=== PATIENT | female | born 1975 | race Caucasian/White ===

== ENCOUNTER 2024-12-06 21:30 | Emergency (ER) | payer MEDICAID, SELFPAY ==
[2024-12-06 21:34] VITALS: BP 136/71; PULSE 88; RESP 18; TEMP 36.3; O2SAT 96; BMI 31.0
[2024-12-06 22:13] LABS: Basophils Percent Auto 0.1 % (0-2); Eosinophils Absolute Auto 0.2 X10*3/uL (0.0-0.4); Eosinophils Percent Auto 1.6 % (0-4); Hematocrit 40.6 % (37.0-47.0); Hemoglobin 13.5 g/dl (12.0-16.0); Imm Gran Abs Auto 0.03 X10*3/uL (0.00-0.03); Imm Gran Pct Auto 0.2 % (0.0-0.4); Lymphocytes Percent Auto 50.2 % (20-40); MANUAL DIFF FLAG SCAN; Mean Corpuscular HGB Conc 33.3 g/dl (31.0-35.0); Mean Corpuscular Hemoglobin 27.8 pg (27.0-33.0); Mean Corpuscular Volume 83.5 fL (80.0-98.0); Mean Platelet Volume 9.6 fL (9.4-12.3); Monocytes Absolute Auto 0.8 X10*3/uL (0.1-1.2); Monocytes Percent Auto 6.2 % (2-11); Neutrophils Absolute Auto 5.6 x10*3/uL (2.0-8.3); Neutrophils Percent Auto 41.7 % (45-73); Platelet Count 369 X10*3/uL (160-400); Red Blood Count 4.86 X10*6/uL (4.20-5.50); Red Cell Distribution Width 16.7 % (11.0-16.0); SCAN SMEAR FLAG 1; White Blood Count 13.4 X10*3/uL (4.8-10.8)
[2024-12-06 22:14] LABS: Lymphocytes Absolute Auto 6.7 X10*3/uL (1.2-4.9)
[2024-12-06 22:15] LABS: Appearance Urine Clear; Color Urine Yellow; Glucose Urine UA Negative (Negative); Leukocyte Esterase Urine Negative (Negative); Nitrite Urine Negative (Negative); Specific Gravity - Urine <= 1.005 (1.005-1.025); Urine Blood Negative (Negative); Urine Ketones Negative (Negative); Urine Protein Negative (Neg-Trace)
[2024-12-06 22:21] LABS: Bacteria Urine None Seen (None Seen); Hyaline Casts Urine 0-2 /LPF (0-2); RBC Urine 0-2 /HPF (0-2); Squamous Epithelial Cell Urine 0-2 /HPF (0-2); WBC Urine 0-5 /HPF (0-5)
[2024-12-06 22:22] LABS: UPreg QC Valid YES; Urine Pregnancy NEGATIVE (NEGATIVE)
[2024-12-06 22:30] LABS: Alanine Aminotransferase 15 U/L (0-31); Albumin Level 4.2 g/dL (3.5-5.0); Alkaline Phosphatase 84 U/L (39-117); Anion Gap 16 (12-20); Aspartate Amino Transferase 29 U/L (5-31); Bilirubin Direct < 0.2 mg/dL (0.0-0.5); Bilirubin Total 0.2 mg/dL (0.0-1.0); Blood Urea Nitrogen 10 mg/dL (9-16); Calcium 9.7 mg/dL (8.4-10.2); Carbon Dioxide 19 mmol/L (22-29); Chloride 105 mmol/L (96-108); Creatinine Clr Calc Pharmacy 90.6; Estimated Glomerular Filt Rate > 60; Glucose Random 74 mg/dL (60-115); Lipase 20 U/L (8-78); Potassium 3.4 mmol/L (3.3-5.1); Sodium 137 mmol/L (135-145)
[2024-12-06 22:44] LABS: SLIDE REVIEW VERIFIED
[2024-12-06 22:52] LABS: Influenza A PCR NEGATIVE (Negative); Influenza B PCR NEGATIVE (Negative); Resp Syncy Virus RNA Qual PCR NEGATIVE (Negative); SARS COV2 PCR INHOUSE NEGATIVE (Negative)
== END 2024-12-07 03:51 | disposition left against medical advice (07) ==
PROVIDERS: Emergency Provider Emergency Medicine; PCP Internal Medicine
DX: R10.9 Unspecified abdominal pain (principal); R11.2 Nausea with vomiting, unspecified; Z03.818 Encounter for observation for suspected exposure to other biological agents ruled out; Z53.21 Procedure and treatment not carried out due to patient leaving prior to being seen by health care provider
CPT/HCPCS: 0241U; 36415; 80048; 80076; 81001; 81025; 83690; 85025; 99281; 99282

== ENCOUNTER 2025-06-28 11:52 | Outpatient (REF) | payer MEDICAID, SELFPAY ==
--- OUTSIDE RECORDS SUMMARY | 2025-06-28 10:45 | XMS_ITS | Encounter Summary ---
Author Organization [facility] Address [address] [place] [address] Care Team Providers Care Poured Concrete Wall Technician Name Role Phone Eleanor Torres MD Primary Care Provider Reason for Referral * Imaging (Routine) - Closed Specialty Diagnoses / Procedures Referred By James william Referred To Contact Radiology Diagnoses Breast cancer screening by mammogram Procedures BI Mammogram Screening Tomosynthesis Bilateral Eleanor Torres MD [address] [place] [address] Phone: tel: fax: [facility] Referral ID Status Reason Start Date Expiration Date Visits Re quested Visits Authorized [id number] Closed 06/28/2025 06/28/2026 1 1 * Consultation (Routine) - Pending Review Specialty Diagnoses / Procedures Referred By James william Referred To Contact Optometry Diagnoses Blurry vision Eleanor Torres MD [address] [place] [address] Phone: tel: fax: Referral ID Status Reason Start Date Expiration Date Visits Requested Visits Authorized [id number] Pending Review Specialty Services Required 06/28/2025 06/28/2026 1 1 Reason for Visit * Reason Comments Establish Care Encounter Details Date Type Department Care Team (Late st Contact Info) Description 06/28/2025 10:45 AM EDT Office Visit [facility] MED & PEDS [address] [place], [place] [phone] Eleanor Torres MD [address] [place] [address] Blurry vision (Primary Dx); Breast cancer screening by mammogram; H. pylori infection; Encounter for health-related screening; Overweight; Abnormal uterine bleeding; Acute right-sided thoracic back pain Social History Tobacco Use Types Packs/Day Years Used Date Smoking Tobacco: Every Day Cigarettes Tobacco Cessation:Ready to Q uit: Not Asked Alcohol Use Standard Drinks/Week Comments Not Currently 0 (1 standard drink = 0.6 oz pur e alcohol) Housing Stability Answer Date Recorded What is your housing situation today? I have shruthi jaquez 06/21/[address] you li ve. Do you have problems with any of the following? None of the above 06/21/2025 Food Insecurity Answer Date Recorded Within the past 12 months, y ou worried that your food would run out before you got money to buy more: Never True 06/21/2025 Within the past 12 months,th e food you bought just didn't last and you didn't have enough money to get more: Never True 08/2025 Transportation Answer Date Recorded In the past 12 months, has l ack of transportation kept you from medical appts, meetings, work or from getting things needed for daily living? Yes, it has kept me from medical appointments or getting medications. 06/21/2025 Utilities Answer Date Recorded In the past 12 months, has t he electric, gas, oil or water company threatened to shut off services in your home? No 06/21/2025 Internet Access Answer Date Recorded Internet Access Q1 Yes 06/21/2025 Internet Access Q2 Not on file 06/21/2025 Comments No Sex and Gender Information Value Date Recorded Sex Assigned at Female 08/10/2022 10:17 AM EDT Legal Sex Female 10:17 AM EDT Gender Identity Female 08/10/2022 10:17 AM EDT Sexual Orientation Straight 08/10/2022 10 :17 AM EDT documented as of this encounter Last Filed Vital Signs Vital Sign Reading Time Taken Comments Blood Pressure 108/70 06/28/2025 10:56 AM EDT Pulse 78 06/28/2025 10:56 AM EDT Temperature 36.7 C (98.1 F) 06/28/2025 10:56 AM EDT Respiratory Rate 20 06/28/2025 10:56 AM EDT Oxygen Saturation 98% 06/28/2025 10:56 AM EDT Inhaled Oxygen Concentration - - Weight 69.1 kg (152 lb 6.4 oz) 06/28/2025 10:56 AM EDT Height 158 cm (5' 2.21 ) 06/28/2025 10:56 AM EDT Body Mass Index 27.69 06/28/2025 10:56 AM EDT documented in this encounter Plan of Treatment Upcoming Encounters Date Type Department Care Team (Late st Contact Info) Description 07/24/2025 11:00 AM EDT Procedure Visit [facility] MED & PEDS [address] [place] [address] Eleanor Torres MD [address] [place] [address] 09/10/2025 11:30 AM EST Office Visit [facility] MED & PEDS [address] [place] [address] Eleanor Torres MD [address] [place] [address] Scheduled Orders Name Type Priority Associated Diagnoses Orde r Schedule BI Mammogram Screening Tomosynthesis Bilateral Imaging Routine Breast cancer screening by mammogram Expected: 06/28/2025, Expires: 08/28/2026 Helicobacter pylori Antigen, EIA, Stool Lab Routine H. pylori infection Expected: 06/28/2025, Expires: 06/28/2026 CBC auto differential Lab Routine Encounter for health-related screening Overweight Expected: 06/28/2025 (Approximate), Expires: 06/28/2026 Comprehensive Metabolic Panel Lab Routine Encounter for health-related screening Overweight Expected: 06/28/2025 (Approximate), Expires: 06/28/2026 Lipid Panel, Standard Lab Routine Encounter for health-related screening Overweight Expected: 06/28/2025 (Approximate), Expires: 06/28/2026 TSH W/Reflex to FT4 Lab Routine Encounter for health-related screening Overweight Expected: 06/28/2025 (Approximate), Expires: 06/28/2026 Albumin, Random Urine W/Creatinine Lab Routine Encounter for health-related screening Expected: 06/28/2025 (Approximate), Expires: 06/28/2026 HIV-1/2 Antigen and Antibodies, Fourth Generation, with Reflexes Lab Routine Encounter for health-related screening Expected: 06/28/2025 (Approximate), Expires: 06/28/2026 Hepatitis C Antibody with Reflex to HCV, RNA, Quantitative, Real-Time PCR Lab Routine Encounter for health-related screening Expected: 06/28/2025, Expires: 06/28/2026 Hepatitis B Surface Antibody, Qualitative Lab Routine Encounter for health-related screening Expected: 06/28/2025 (Approximate), Expires: 06/28/2026 Hepatitis B Core Antibody, Total Lab Routine Encounter for health-related screening Expected: 06/28/2025 (Approximate), Expires: 06/28/2026 Hepatitis B surface antigen, EIA Lab Routine Encounter for health-related screening Expected: 06/28/2025 (Approximate), Expires: 06/28/2026 FSH Lab Routine Abnormal uterine bleeding Expected: 06/28/2025, Expires: 06/28/2026 Estradiol Lab Routine Abnormal uterine bleeding Expected: 06/28/2025, Expires: 06/28/2026 Anti-Mullerian Hormone (AMH), Female Lab Routine Abnormal uterine bleeding Expected: 06/28/2025 (Approximate), Expires: 06/28/2026 XR Thoracic Spine 2 Views Imaging Routine Acute right-sided thoracic back pain Expected: 06/28/2025, Expires: 06/28/2026 Scheduled Referrals Name Type Priority Associated Diagnoses Orde r Schedule Referral to Optometry Outpatient Referral Routine Blurry vision Expected: 06/28/2025 (Approximate), Expires: 06/28/2026 documented as of this encounter Visit Diagnoses Diagnosis Blurry vision- Primary Other specified visual disturbances Breast cancer screening by mammogram H. pylori infection Helicobacter pylori (H. pylori) Encounter for health-related screening Overweight Abnormal uterine bleeding Unspecified disorder of menstruation and other abnormal bleeding from female genital tract Acute right-sided thoracic back pain documented in this encounter Care Teams Poured Concrete Wall Technician Relationship Specialty Start Date End Date Eleanor Torres MD [address] [place] [id number] PCP - General Family Medicine 06/28/25 DON Hernandez Nurse Practitioner Psychiatry 06/28/25 documented as of this encounter
--- OUTSIDE RECORDS SUMMARY | 2025-06-28 14:12 | XMS_ITS | Encounter Summary ---
Author Organization [employer] Address [address] [place] [address] Care Team Providers Care Art Consultant Name Role Phone Eleanor Torres MD Primary Care Provider [phone] Reason for Visit * Reason Onset Date Comments Appointment Request 03/22/2024 Encounter Details Date Type Department Care Team ([facility] st Contact Info) Description 03/22/2024 Telephone [facility] MEDICINE [address] [place] [address] Billie Cutler MD [address] [place], [place] [phone] Appointment Request Social History Tobacco Use Types Packs/Day Years Used Date Smoking Tobacco: Never Assessed Comments Unknown Sex and Gender Information Value Date Recorded Sex Assigned at Female 08/10/2022 10:17 AM EDT Legal Sex Female 10:17 AM EDT Gender Identity Female 08/10/2022 10:17 AM EDT Sexual Orientation Straight 08/10/2022 10 :17 AM EDT documented as of this encounter Miscellaneous Notes * Telephone Encounter - Erika Mcintosh - 03/22/2024 3:19 PM EDT Tc regarding message prior. Windows Server Support Technician informed is no longer a pt. Hasn't been seen since 01/2021 * Telephone Encounter - Jennifer Alex - 03/22/2024 9:12 AM EDT Tc from pt requesting PE appt, needed for work for this week, pt advised no availability until May. documented in this encounter Plan of Treatment Upcoming Encounters Date Type Department Care Team (Late st Contact Info) Description 07/24/2025 11:00 AM EDT Procedure Visit [facility] MED & PEDS [address] [place] [address] Eleanor Torres MD [address] [place] [address] 09/10/2025 11:30 AM EST Office Visit [facility] MED & PEDS [address] [place] [address] Eleanor Torres MD [address] [place] [address] documented as of this encounter Visit Diagnoses Not on filedocumented in this encounter Care Teams Art Consultant Relationship Specialty Start Date End Date Eleanor Torres MD [address] [place] [address] PCP - General Family Medicine 06/28/25 DON Hernandez Nurse Practitioner Psychiatry 06/28/25 documented as of this encounter
--- OUTSIDE RECORDS SUMMARY | 2025-06-28 14:12 | XMS_ITS | Clinical Summary ---
Author Organization [employer] Address [address] [place] [address] Care Team Providers Care Plate Stacker Name Role Phone Eleanor Torres MD Primary Care Provider [phone] Allergies No known active allergies Medications * This document contains information received from the source organization and may not represent a complete record from that organization. QUEtiapine (SEROquel) 50 MG tabletIndicatio ns:Insomnia Take 75 mg by mouth at bedtime. 5 Active lamoTRIgine (LaMICtal) 25 MG tablet Take 100 mg by mouth Once per day. 5 Active clonazePAM (KlonoPIN) 1 MG tablet TAKE ONE TABLET DAILY NEEDED FOR SEVERE anxiety/panic attacks Active acetaminophen (Tylenol Extra Strength) 500 MG tablet Take 2 tablets (1,000 mg) by mouth every 8 (eight) hours if needed for mild pain. 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 pylori infection; Encounter for health-related screening; Overweight; Abnormal uterine bleeding; Acute right-sided thoracic back pain 06/28/2025 Travel 06/25/2025 Telephone [facility] MED & PEDS [address] [place] [address] Eleanor Torres MD chart prep 06/22/2025 Patient Outreach [address] [address] Fabiola Zamarripa Care Coordination (C3 CM-[facility]W Fabiola Zamarripa telephone call outreach/) 06/21/2025 Patient Outreach [address] [address] Guy Medina MD Pre-visit Planning (SDOH screening positive and Tobacco screening positive) 04/23/[address] [address] Guy Medina MD New Patient from Last 3 Months Social History Tobacco Use Types Packs/Day Years Used Date Smoking Tobacco: Every Day Cigarettes Tobacco Cessation:Ready to Q uit: Not Asked Alcohol Use Standard Drinks/Week Comments Not Currently 0 (1 standard drink = 0.6 oz pur e alcohol) Housing Stability Answer Date Recorded What is your housing situation today? I have shruthi sing 06/21/[address] you li [...] Orientation Straight 08/10/2022 10 :17 AM EDT Last Filed Vital Signs Vital Sign Reading [...] Mass Index 27.69 06/28/2025 10:56 AM EDT Plan of Treatment Upcoming Encounters Date Type Department Care Team (Late st Contact Info) Description 07/24/2025 11:00 AM EDT Procedure Visit [facility] MED & PEDS [address] [place] [address] Eleanor Torres MD [address] [place] [address] 09/10/2025 11:30 AM EST Office Visit [facility] MED & PEDS [address] [place] [address] Eleanor Torrse MD [address] [place] [address] Health Maintenance Due Date Last Done Comments CT Colonography 1975 Depression Screening 1975 FIT DNA/Cologuard 1975 FIT 1975 FOBT 1975 HIV Screening 1975 Lipid Panel 1975 Sigmoidoscopy 1975 Disability Screening 1975 Alcohol/Substance Use Screening 1987 Family Planning (PISQ) 1990 Hepatitis C Screening 1993 DTaP/Tdap/Td Vaccines (1 - Tdap) 1994 Hepatitis B Vaccines (1 of 3 - 19+ 3-dose series) 1994 Pneumococcal Vaccine: Pediatrics (0 to 5 Years) and At-Risk Patients (6 to 49) Years (1 of 2 - PCV) 1994 Pap Smear 1996 Cervical Cancer Screening 2005 HPV/Cotest 2005 Mammogram 11/30/2021 11/30/2019, 11/30/2019 COVID-19 Vaccine (3 - 2024-2 6 season) 2025 10/15/2021, 09/19/2021 Influenza Vaccine (#1) 2025 Zoster Vaccines (1 of 2) 2025 SDOH Screening 06/21/2026 06/21/2025 Tobacco Screening 06/28/2026 06/28/2025 Colonoscopy 12/20/2034 12/20/2024 Colorectal Cancer Screening 12/20/2034 RSV Patients and Patients Aged 60 years or older (1 - 1-dose 75+ series) 2050 HIB Vaccines Aged Out No longer eligi ble based on patient's age to complete this topic HPV Vaccines Aged Out No longer eligi ble based on patient's age to complete this topic Hepatitis A Vaccines Aged Out No long er eligible based on patient's age to complete this topic IPV Vaccines Aged Out No longer eligi ble based on patient's age to complete this topic Meningococcal B Vaccine Aged Out No l onger eligible based on patient's age to complete this topic Meningococcal Vaccine Aged Out No [place] ben eligible based on patient's age to complete this topic RSV under 20 months Aged Out No longe r eligible based on patient's age to complete this topic Rotavirus Vaccines Aged Out No longer eligible based on patient's age to complete this topic Procedures Procedure Name Priority Date/Time Associated Diagnosis Comments BI MAMMOGRAM DIAGNOSTIC BILATERAL Routine 11/30/2019 5:29 PM EST from Last 3 Months or Most Recently Relevant to Health Maintenance Results * 3D BILATERAL DIAGN MAMMO 1 (11/30/2019 5:29 PM EST) Anatomical Region Laterality Modality Breast Bilateral Mammography 11/30/2019 5:29 PM EST Narrative 12/01/2019 8:57 AM EST Refer to the Notes tab for result details Legacy Procedure: 3D BILATERAL DIAGN MAMMO 1 Procedure Note Provider, MD Luz - 01/02/2023 Refer to the Notes tab for result details Legacy Procedure: 3D BILATERAL DIAGN MAMMO 1 Maxwell Phelps MD IMG BI PROCEDURES Final Result from Last 3 Months or Most Recently Relevant to Health Maintenance Insurance [employer] Care Teams Plate Stacker Relationship Specialty Start Date End Date Eleanor Torres MD [address] [place] [address] PCP - General Family Medicine 06/28/25 DON Hernandez Nurse Practitioner Psychiatry 06/28/25
--- OUTSIDE RECORDS SUMMARY | 2025-06-28 14:12 | XMS_ITS | Encounter Summary ---
Author Organization [employer] Address [address] [facility] [address] [place] [address] Care Team Providers Care Vehicle Modification Technician Name Role Phone Eleanor Torres MD Primary Care Provider [phone] Reason for Visit * Reason Onset Date Comments CHW - New Patient Assistance 11/08/2024 Encounter Details Date Type Department Care Team (Late Contact Info) Description 11/08/2024 Telephone [facility] MEDICINE [address] [place], [place] [phone] Guy Medina MD [address] [place], [place] [phone] CHW - New Patient Assistance Social History Tobacco Use Types Packs/Day Years Used Date Smoking Tobacco: Never Assessed Comments Unknown Sex and Gender Information Value Date Recorded Sex Assigned at Female 08/10/2022 10:17 AM EDT Legal Sex Female 10:17 AM EDT Gender Identity Female 08/10/2022 10:17 AM EDT Sexual Orientation Straight 08/10/2022 10 :17 AM EDT documented as of this encounter Miscellaneous Notes * Telephone Encounter - Denis De Paz - 11/08/2024 11:44 AM EST TC from caller requesting NEW PATIENT visit . DX : Medical Concern: Nausea constipation Insurance name : [employer] C3 Location : [place] Demographic information updated documented in this encounter Plan of Treatment Upcoming Encounters Date Type Department Care Team (Late Contact Info) Description 07/24/2025 11:00 AM EDT Procedure Visit [facility] MED & PEDS [address] [place] [address] Eleanor Torres MD [address] [place] [address] 09/10/2025 11:30 AM EST Office Visit [facility] MED & PEDS [address] [place] [address] Eleanor Torres MD [address] [place] [address] documented as of this encounter Visit Diagnoses Not on filedocumented in this encounter Care Teams Vehicle Modification Technician Relationship Specialty Start Date End Date Eleanor Torres MD [address] [place] [address] PCP - General Family Medicine 06/28/25 DON Hernandez Nurse Practitioner Psychiatry 06/28/25 documented as of this encounter
--- OUTSIDE RECORDS SUMMARY | 2025-06-28 14:12 | XMS_ITS | Clinical Summary ---
Author Organization [facility] Address [address] [place] [address] Phone Care Team Providers Care Guide Delegate Name Role Phone Jesika Flores MD Primary Care Provider [phone] Allergies No known active allergies Medications albuterol HFA (PROVENTIL HFA;VENTOLIN HFA) 108 (90 Base) MCG/ACT inhaler Inhale by mouth. 2 puffs by mouth every 4 hours if needed for cough wheezing or shortness of breath Active fluticasone HFA (FLOVENT HFA) 220 mcg/actuation inhaler Inhale 1 puff by mouth 2 (two) times a day. Rinse mouth with water after use to reduce aftertaste and incidence of candidiasis. Do not swallow. 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 ESOPHAGOGASTRODUODENOSCOPY 2.25.13 PROCEDURE: [place] ESOPHAGOGASTRODUODENOSCOPY TRANSORAL DIAGNOSTIC; COMMENT: lymphocytic esophagitis ESOPHAGOGASTRODUODENOSCOPY 05/01/2013 PROCEDURE: [place] EGD TRANSORAL BIOPSY SINGLE/MULTIPLE; COMMENT: Improved lymphocytic esophagitis Medical History Medical History Date Comments Asthma 02/25/12 DX:Asthma Esophagitis 12/29/2012 DX:Esophagitis Family History Medical History Relation Name Comments Hypertension Father bone cancer; [place] PD, Grave's Hypertension Mother Hypertension Mother's side 1 grandparents Diabetes Sister 1 Heart attack Sister 2 in 40s Relation Name Status Comments Father Mother Mother's side 1 Mother's side 2 Sister 1 Sister 2 Sister 3 Social History Tobacco Use Types Packs/Day Years Used Date Smoking Tobacco: Every Day Cigarettes 0.5 25.5 Started: 12/21/1999 Smokeless Tobacco: Never Tobacco Cessation:Ready to Q uit: No; Counseling Given: No Alcohol Use Standard Drinks/Week Comments Not Currently 2 (1 standard drink = 0.6 oz pur e alcohol) Interpersonal Safety Answer Date Record ed Physical Abuse 12/20/2024 Verbal Abuse 12/20/2024 Comments No Sex and Gender Information Value Date Recorded Sex Assigned at Female 12/09/2024 8:36 PM EST Legal Sex Female 4:56 PM EST Gender Identity Female 12/09/2024 8:36 PM EST Sexual Orientation Straight 12/09/2024 8: 36 PM EST Obstetrics History Last Filed Vital Signs Vital Sign Reading Time Taken Comments Blood Pressure 115/77 12/20/2024 2:26 PM EDT Pulse 58 12/20/2024 2:26 PM EDT Temperature 36.4 C (97.6 F) 12/20/2024 2:06 PM EDT Respiratory Rate 17 12/20/2024 2:26 PM EDT Oxygen Saturation 99% 12/20/2024 2:26 PM EDT Inhaled Oxygen Concentration - - Weight 76.7 kg (169 lb) 12/20/2024 12:45 PM EDT Height 157.5 cm (5' 2 ) 12/20/2024 12:45 PM EDT Body Mass Index 30.91 12/20/2024 12:45 PM EDT Plan of Treatment Health Maintenance Due Date Last Done Comments Hepatitis B Vaccines (1 of 3 - 19+ 3-dose series) 1994 Pneumococcal Vaccine: Pediatrics (0 to 5 Years) and At-Risk Patients (6 to 49 Years) (1 of 2 - PCV) 1994 Cervical Cancer Screening: P ap Smear 1996 Breast Cancer Screening 11/30/2021 11/30/2019 HIV Screening 09/09/2022 Hepatitis C Screening 09/09/2022 Social Influencers of Health Screening 09/09/2022 Depression Screening 10/11/2024 DTaP,Tdap,and Td Vaccines (2 - Td or Tdap) 10/19/2024 10/19/2014 COVID-19 Vaccine (3 - 2024-2 6 season) 2025 10/15/2021, 09/19/2021 Influenza Vaccine (#1) 2025 Cholesterol Screening (Lipid Panel) 06/09/2026 06/09/2021 Colorectal Cancer Screening: Colonoscopy 12/20/2034 12/20/2024 RSV Immunization Adult Patients (1 - 1-dose 75+ series) 2050 HIB [...] on patient's age to complete this topic MMR Vaccines Aged Out No longer eligi ble based on patient's age to complete this topic Meningococcal ACWY Vaccine Aged Out N o longer eligible based on patient's age to complete this topic Meningococcal B Vaccine Aged Out No l onger eligible based on patient's age to complete this topic RSV Immunization Patients Under 20 months Aged Out No longer eligible b ased on patient's age to complete this topic Varicella Vaccines Aged Out No longer eligible based on patient's age to complete this topic Medical Devices Implanted Type Area Production Support Analyst Device Identifier Shelf Expiration Date Model / Serial / Lot Implants Implants N/A: Back Procedures Procedure Name Priority Date/Time Associated Diagnosis Comments COLONOSCOPY Routine 12/20/2024 2:[address] scan, gastrointestinal tract Esophageal dysphagia LIPID PANEL Routine 06/09/2021 from Last 3 Months or Most Recently Relevant to Health Maintenance Results * COLONOSCOPY Anesthesia - MAC; [facility] ENDOSCOPY (12/20/2024 2:05 PM EDT) Anatomical Region Laterality Modality Other 12/20/2024 1:51 PM EDT Impressions 12/20/2024 2:05 PM EDT - The entire examined colon is normal. - No specimens collected. Recommendation: - Repeat colonoscopy in 10 years for screening purposes. Narrative 12/20/2024 2:05 PM EDT [facility] GI Patient Name: Ilana Argueta Procedure Date: 12/20/2024 1:51 PM Date of : 1975 Age: 49 Gender: Female Note Status: Finalized Attending MD: Vernon Samuel MD, Procedure Date No Time: 12/20/2024 Procedure: Colonoscopy Indications: Abnormal CT of the GI tract Providers: Vernon Samuel MD Referring MD: Prakash Silva DO Medicines: Propofol per Anesthesia Complications: No immediate complications. Estimated Blood Loss: Estimated blood loss: none. Procedure: Pre-Anesthesia Assessment: - ASA Grade Assessment: II - A patient with mild systemic disease. After I obtained informed consent, the scope was passed under direct vision. Throughout the procedure, the patient's blood pressure, pulse, and oxygen saturations were monitored continuously.The Olympus Pediatric Colonoscope was introduced through the anus and advanced to the cecum, identified by appendiceal orifice and ileocecal valve. The colonoscopy was performed without difficulty. The patient tolerated the procedure well. The quality of the bowel preparation was good. Findings: The perianal and digital rectal examinations were normal. The entire examined colon appeared normal. Procedure Code(s): --- Professional --- 07041, Colonoscopy, flexible; diagnostic, including collection of specimen(s) by brushing or washing, when performed (separate procedure) Diagnosis Code(s): --- Professional --- R93.3, Abnormal findings on diagnostic imaging of other parts of digestive tract CPT copyright 2020 [employer]. All rights reserved. The codes documented in this report are preliminary and upon glue jointer operator review may be revised to meet current compliance requirements. Vernon Samuel MD 12/20/2024 2:05:35 PM This report has been signed electronically.Vernon Samuel MD Number of Addenda: 0 Note Initiated On: 12/20/2024 1:51 PM Scope In: Scope Out: Endoscopy Department at [facility] - [address] [place] [id number] Procedure Note Vernon Samuel MD - 12/20/2024 [facility] GI Patient Name: Ilana Argueta Procedure Date: 12/20/2024 1:51 PM Date of : 1975 Age: 49 Gender: Female Note Status: Finalized Attending MD: Vernon Samuel MD, Procedure Date No Time: 12/20/2024 Procedure: Colonoscopy Indications: Abnormal CT of the GI tract Providers: Vernon Samuel MD Referring MD: Prakash Silva DO Medicines: Propofol per Anesthesia Complications: No immediate complications. Estimated Blood Loss: Estimated blood loss: none. Procedure: Pre-Anesthesia Assessment: - ASA Grade Assessment: II - A patient with mild systemic disease. After I obtained informed consent, the scope was passed under direct vision. Throughout theprocedure, the patient's blood pressure, pulse, and oxygen saturations were monitored continuously.The Olympus Pediatric Colonoscope was introduced through theanus and advanced to the cecum, identified byappendiceal orifice and ileocecal valve. The colonoscopy was performed without difficulty. The patient tolerated the procedure well. The quality of the bowel preparation was good. Findings: The perianal and digital rectal examinations were normal. The entire examined colon appeared normal. Procedure Code(s): --- Professional --- 76688, Colonoscopy, flexible; diagnostic, including collection of specimen(s) by brushing or washing,when performed (separate procedure) Diagnosis Code(s): --- Professional --- R93.3, Abnormal findings on diagnostic imaging of other parts of digestive tract CPT copyright 2020 [employer]. All rights reserved. The codes documented in this report are preliminary and upon glue jointer operator reviewmay be revised to meet current compliance requirements. Vernon aSmuel MD 12/20/2024 2:05:35 PM This report has been signed electronically.Vernon Samuel MD Number of Addenda: 0 Note Initiated On: 12/20/2024 1:51 PM Scope In: Scope Out: Endoscopy Department at [facility] - [address] [place] [phone] IMPRESSION: - The entire examined colon is normal. - No specimens collected. Recommendation: - Repeat colonoscopy in 10 years for screening purposes. Prakash Silva DO GI~PROCEDURE ORDERABLES Final Re sult * Lipid panel (06/09/2021) LDL/HDL Ratio 3 0 - 4 Triglycerides 68 0 - 150 mg/dL Cholesterol 147 0 - 200 mg/dL HDL 53 >=40 mg/dL LDL Cholesterol 81 0 - 100 mg/dL Blood Venous blood specimen / Unknown Historical Provider LAB BLOOD ORDERABLES Thuy rich Result from Last 3 Months or Most Recently Relevant to Health Maintenance Insurance MEDICAID - [place] Care Teams Guide Delegate Relationship Specialty Start Date End Date Jesika Flores MD [address] [place] [id number] PCP - General Family Medicine 12/20/24
--- OUTSIDE RECORDS SUMMARY | 2025-06-28 14:12 | XMS_ITS | Encounter Summary ---
Author Organization [employer] Address [address] [facility] 7t [place] [address] Care Team Providers Care Visual Artist Name Role Phone Eleanor Torres MD Primary Care Provider [phone] Encounter Details Date Type Department Care Team (Latest Contact Info) Description 06/28/2025 Travel Social History Tobacco Use Types Packs/Day Years Used Date Smoking Tobacco: Every Day Cigarettes Alcohol Use Standard Drinks/Week Comments Not Currently [...] AM EDT documented as of this encounter Plan of Treatment Upcoming Encounters Date Type Department Care Team (Late st Contact Info) Description 07/24/2025 11:00 AM EDT Procedure Visit [facility] [address] [place] [address] Eleanor Torres MD [address] [place] [address] 09/10/2025 11:30 AM EST Office Visit [facility] [address] [place] [address] Eleanor Torres MD [address] [place] [address] documented as of this encounter Visit Diagnoses Not on filedocumented in this encounter Care Teams Visual Artist Relationship Specialty Start Date End Date Eleanor Torres MD [address] [place] [address] PCP - General Family Medicine 06/28/25 DON Hernandez Nurse Practitioner Psychiatry 06/28/25 documented as of this encounter
--- OUTSIDE RECORDS SUMMARY | 2025-06-28 14:12 | XMS_ITS | Encounter Summary ---
Author Organization [employer] Address [address] 7[address] [place] [address] Care Team Providers Care Collection Correspondent Name Role Phone Unavailable Primary Care Provider Unavailabl e Reason for Visit * Reason Onset Date Comments chart prep 06/25/2025 Encounter Details Date Type Department Care Team ([facility] st Contact Info) Description 06/25/2025 Telephone [facility] [address] [place] [address] Eleanor Torres MD [address] [place] [address] chart prep Social History Tobacco Use Types Packs/Day Years Used Date Smoking Tobacco: Never Assessed Housing Stability Answer Date Recorded What is [...] Access Q2 Not on file 06/21/2025 Comments Unknown Sex and Gender Information Value Date Recorded Sex Assigned at Female 08/10/2022 10:17 AM EDT Legal Sex Female 10:17 AM EDT Gender Identity Female 08/10/2022 10:17 AM EDT Sexual Orientation Straight 08/10/2022 10 :17 AM EDT documented as of this encounter Miscellaneous Notes * Telephone Encounter - Rojelio Dumont [place] - 06/25/2025 12:48 PM EDT Chart Prep Labs: not applicable Images: not applicable Referrals: not applicable Vaccines due: PCV20, Tdap, Hep B, and Zoster Screenings: mammogram and pap smear Overdue care gaps: SBIRT, SDOH, PHQ-9, and Disability screen documented in this encounter Plan of Treatment Upcoming Encounters Date Type Department Care Team (Late st Contact Info) Description 07/24/2025 11:00 AM EDT Procedure Visit [facility] PEDS [address] [place] [address] Eleanor Torres MD [address] [place] [address] 09/10/2025 11:30 AM EST Office Visit [facility] [address] [place] [address] Eleanor Torres MD [address] [place] [address] documented as of this encounter Visit Diagnoses Not on filedocumented in this encounter
[2025-06-28 14:36] LABS: MANUAL DIFF FLAG NO
[2025-06-28 14:39] LABS: Hematocrit 40.5 % (37.0-47.0); Hemoglobin 13.5 g/dl (12.0-16.0); Imm Gran Abs Auto 0.03 X10*3/uL (0.00-0.03); Imm Gran Pct Auto 0.3 % (0.0-0.4); Lymphocytes Absolute Auto 3.5 X10*3/uL (1.2-4.9); Mean Corpuscular HGB Conc 33.3 g/dl (31.0-35.0); Mean Corpuscular Hemoglobin 29.6 pg (27.0-33.0); Mean Corpuscular Volume 88.8 fL (80.0-98.0); NRBC Abs Auto 0.000 X10*3/uL (0.0-0.012); NRBC Pct Auto 0.0 /100WBC (0.0-0.2); Platelet Count 307 X10*3/uL (160-400); Red Blood Count 4.56 X10*6/uL (4.20-5.50); White Blood Count 9.1 X10*3/uL (4.8-10.8)
[2025-06-28 15:25] LABS: Alanine Aminotransferase 13 U/L (0-31); Albumin Level 4.5 g/dL (3.5-5.0); Alkaline Phosphatase 87 U/L (39-117); Anion Gap 10 (12-20); Aspartate Amino Transferase 34 U/L (5-31); Blood Urea Nitrogen 10 mg/dL (9-16); Calcium 9.3 mg/dL (8.4-10.2); Carbon Dioxide 27 mmol/L (22-29); Chloride 108 mmol/L (96-108); Cholesterol 213 mg/dL (<200); Estimated Glomerular Filt Rate > 60; HDL Cholesterol 43 mg/dL (>40); Potassium 4.2 mmol/L (3.3-5.1); Sodium 141 mmol/L (135-145); Total Protein 7.7 g/dL (6.5-8.0); Triglycerides 127 mg/dL (<150)
[2025-06-29 09:21] LABS: HBS Num1 0.00 mIU/mL (0-7.99); HBc Num1 0.07 S/CO (0.00-0.79); HBsAGNum1 0.47 S/CO (0.00-0.99); HIV Num 1 0.05 S/CO (0.00-0.99); Hepatitis B Surface Antigen Negative (Negative); ~HepC Num1 0.09 S/CO (0.00-0.79); ~Hepatitis B Surface Antibody NONREACTIVE (Nonreactive); ~Hepatitis C Antibody Nonreactive (Nonreactive)
== END 2025-06-28 11:53 | disposition home or self-care (01) ==
LOC: HO.CHCLDS 11:52
PROVIDERS: Visit Provider Family Medicine
DX: Z11.4 Encounter for screening for human immunodeficiency virus [HIV] (principal); Z11.59 Encounter for screening for other viral diseases; E66.3 Overweight
CPT/HCPCS: 36415; 80053; 80061; 84443; 85025; 86704; 86706; 86803; 87340; 87389

== ENCOUNTER 2025-07-24 12:00 | Outpatient (REF) | payer MEDICAID, SELFPAY ==
--- OUTSIDE RECORDS SUMMARY | 2025-07-24 11:00 | XMS_ITS | Encounter Summary ---
Author Organization [employer] Address [address] [place] [address] Care Team Providers Care Cut Order Hand Name Role Phone Eleanor Jeffrey MD Primary Care Provider [phone] Cait Shaw RN Unavailable [phone] Madison Humphrey Unavailable Reason for Visit * Reason Comments Cervical Cancer Screening Encounter Details Date Type Department Care Team (Latest Contact Info) Description 07/24/2025 11:00 AM EDT Procedure Visit [facility] [address] [place], [place] [phone] Eleanor Jeffrey MD [address] [place], [place] [phone] Severe back pain (Primary Dx); Cervical cancer screening Social History Tobacco Use Types Packs/Day Years [...] Sign Reading Time Taken Comments Blood Pressure 120/76 07/24/2025 11:24 AM EDT Pulse 78 07/24/2025 11:24 AM EDT Temperature 36.2 C (97.2 F) 07/24/2025 11:24 AM EDT Respiratory Rate 20 07/24/2025 11:2 4 AM EDT Oxygen Saturation 98% 07/24/2025 11: 24 AM EDT Inhaled Oxygen Concentration - - Weight 70.2 kg (154 lb 12.8 oz) 025 11:24 AM EDT Height 157.5 cm (5' 2 ) 07/24/2025 11:2 4 AM EDT Body Mass Index 28.31 07/24/2025 11:24 AM EDT documented in this encounter Progress Notes * Eleanor Jeffrey MD - 07/24/2025 11:00 AM EDT Subjective Patient ID: Ilana Argueta is a 49 y.o. female who presents for Cervical Cancer Screening. 49 y.o. here for cervical cancer screening, recent ED visit for severe back pain. Will need to be schedule for evaluation. Was given temporary medication for pain relief, has neurosurgery followup tomorrow per her report. Fixated on this and I was unable to do well woman evaluation, was able to proceed with pap smear. Review of Systems Psychiatric/Behavioral: Positive for agitation and behavioral problems. The patient is nervous/anxious. Objective Visit Vitals BP 120/76 Pulse 78 Temp 97.2 ??F (36.2 ??C) (Oral) Resp 20 Ht 5' 2 (1.575 m) Wt 154 lb 12.8 oz (70.2 kg) LMP 05/25/2025 (Approximate) SpO2 98% BMI 28.31 kg/m?? OB Status Having periods Smoking Status Every Day BSA 1.75 m?? Physical Exam Exam conducted with a vacuum metalizing supervisor present. Genitourinary: Labia: Right: No tenderness. Left: No tenderness. Cervix: Normal. No discharge. Assessment/Plan Problem List Items Addressed This Visit Severe back pain - Primary Was provided with medication for pain, reviewed ED note, scheduled appointment with provider for evaluation Relevant Medications Lidocaine 4 % patch acetaminophen (Tylenol) 325 MG tablet oxyCODONE (Roxicodone) 5 MG immediate release tablet Cervical cancer screening 49 y.o. here for cervical cancer screening. Will continue monitoring following ASCCP guidelines. documented in this encounter Miscellaneous Notes * Assessment & Plan Note - Eleanor Jeffrey MD - 07/24/2025 11:56 AM EDT Associated Problem(s): Cervical cancer screening 49 y.o. here for cervical cancer screening. Will continue monitoring following ASCCP guidelines. * Assessment & Plan Note - Eleanor Jeffrey MD - 07/24/2025 11:54 AM EDT Associated Problem(s): Severe back pain Was provided with medication for pain, reviewed ED note, scheduled appointment with provider for evaluation * Addendum Note - Eleanor Jeffrey MD - 07/24/2025 11:00 AM EDTAddended by: ELEANOR JEFFREY on: 07/24/2025 11:58 AM Modules accepted: Orders documented in this encounter Plan of Treatment Upcoming Encounters Date Type Department Care Team (Late st Contact Info) Description 07/26/2025 3:30 PM EDT Office Visit [facility] [address] [place] [address] Erica Rodriguez CNP [address] [place] [address] 09/10/2025 11:30 AM EST Office Visit [facility] [address] [place] [address] Eleanor Jeffrey MD [address] [place] [address] Scheduled Orders Name Type Priority Associated Diagnoses Orde r Schedule Pap Smear Pathology and Cytology Routine Cervical cancer screening Ordered: 07/24/2025 HPV High Risk with Reflex to Subtypes Lab Routine Cervical cancer screening Ordered: 07/24/2025 STI testing add on (NG, CT, Trich) Pathology and Cytology Routine Cervical cancer screening Ordered: 07/24/2025 documented as of this encounter Visit Diagnoses Diagnosis Severe back pain- Primary Cervical cancer screening Screening for malignant neoplasm of the cervix documented in this encounter Care Teams Cut Order Hand Relationship Specialty Start Date End Date Eleanor Jeffrey MD [address] [place] [address] PCP - General Family Medicine 06/28/25 Cait Shaw, CORTNEY [address] [place] [address] Registered Nurse Family Medicine 07/23/25 Madison Humphrey 07/23/25 DON Hernandez Nurse Practitioner Psychiatry 06/28/25 documented as of this encounter
--- OUTSIDE RECORDS SUMMARY | 2025-07-24 17:08 | XMS_ITS | Encounter Summary ---
Author Organization [employer] Address [address] [facility] 7t [place] [address] Care Team Providers Care Motion Picture Narrator Name Role Phone Eleanor Torres MD Primary Care Provider [phone] Cait Shaw RN Unavailable [phone] Madison Humphrey Unavailable Encounter Details Date Type Department Care Team (Latest Contact Info) Description 07/24/2025 Travel Social History Tobacco Use Types Packs/Day Years Used Date Smoking Tobacco: Every Day Cigarettes Alcohol Use Standard Drinks/Week Comments Not Currently 0 (1 standard drink = 0.6 oz pur e alcohol) Housing Stability Answer Date Recorded What is your housing situation today? I have shruthijuan jaquez 06/21/[address] you [...] Description 07/26/2025 3:30 PM EDT Office Visit [facility] [address] [place] [address] Erica Rodriguez CNP [address] [place] [address] 09/10/2025 11:30 AM EST Office Visit [facility] [address] [place] [address] Eleanor Torres MD [address] [place] [address] documented as of this encounter Visit Diagnoses Not on filedocumented in this encounter Care Teams Motion Picture Narrator Relationship Specialty Start Date End Date Eleanor Torres MD [address] [place] [address] PCP - General Family Medicine 06/28/25 Cait Shaw, CORTNEY [address] [place] [address] Registered Nurse Family Medicine 07/23/25 Madison Humphrey 07/23/25 DON Hernandez Nurse Practitioner Psychiatry 06/28/25 documented as of this encounter
--- OUTSIDE RECORDS SUMMARY | 2025-07-24 17:08 | XMS_ITS | Encounter Summary ---
Author Organization [employer] Address [address] [facility] 7t [place] [address] Care Team Providers Care Manager Statistical Programming Name Role Phone Eleanor Torres MD Primary Care Provider [phone] Cait Shaw RN Unavailable [phone] Madison Humphrey Unavailable Reason for Visit * Reason Onset Date Comments CHW - New Patient Assistance 11/08/2024 Encounter Details Date Type Department Care Team (Late st Contact Info) Description 11/08/2024 Telephone [facility] [address] [place], [place] [phone] Guy Medina MD [address] [place], [place] [phone] CHW - New Patient Assistance Social History [...] Medical Concern: Nausea constipation Insurance name : [employer] Location : [place] Demographic information updated documented in this encounter Plan of Treatment Upcoming Encounters Date Type Department Care Team (Late st Contact Info) Description 07/26/2025 3:30 PM EDT Office Visit [facility] [address] [place] [address] Erica Rodriguez CNP [address] [place] [address] 09/10/2025 11:30 AM EST Office Visit [facility] [address] [place] [address] Eleanor Torres MD [address] [place], [place] [phone] documented as of this encounter Visit Diagnoses Not on filedocumented in this encounter Care Teams Manager Statistical Programming Relationship Specialty Start Date End Date Eleanor Torres MD [address] [place], [place] [phone] PCP - General Family Medicine 06/28/25 Cait Shaw, RN [address] [place] [address] Registered Nurse Family Medicine 07/23/25 Madison Humphrey 07/23/25 DON Hernandez Nurse Practitioner Psychiatry 06/28/25 documented as of this encounter
--- OUTSIDE RECORDS SUMMARY | 2025-07-24 17:08 | XMS_ITS | Encounter Summary ---
Author Organization [employer] Address [address] [place] [address] Care Team Providers Care Occupational Therapy Supervisor Name Role Phone Eleanor Torres MD Primary Care Provider [phone] Cait Shaw RN Unavailable [phone] Madison Humphrey Unavailable Reason for Visit * Reason Comments Care Coordination CM/CHW outreach Encounter Details Date Type Department Care Team (Latest Contact Info) Description 07/23/2025 Patient Outreach [facility] [address] [place] [address] Eleanor Torres MD [address] [place] [address] Care Coordination (CM/CHW outreach) Social History Tobacco Use Types Packs/Day Years [...] AM EDT documented as of this encounter Progress Notes * Madison Humphrey - 07/23/2025 2:05 PM EDT CHW Madison Humphrey, placed outbound call to patient introducing herself from [facility] CM Department, in regards to offering services. Patient's name and was confirmed. Patient agreesto participate in program. Appt. for initial assessment scheduled for 08/07/25 @10AM tele with THUY Shaw RN. CHW reinforced direct contact information or CM for any additional questions or concerns and extended clinic hours on Mondays and Wednesdays, and Walk-In Urgent Care Located in [facility] of [facility]. Patient provided with after-hours line for [facility], ,which offer night time triage service and option to transfer to medical economics consultant provider if needed. Patient verbalizes understanding, and able to repeat back to junior technical writer. documented in this encounter Plan of Treatment Upcoming Encounters Date Type Department Care Team ([facility] st Contact Info) Description 07/26/2025 3:30 PM EDT Office Visit [facility] [address] [place] [address] Erica Rodriguez, IVETT [address] [place] [address] 09/10/2025 11:30 AM EST Office Visit [facility] [address] [place] [address] Eleanor Torres MD [address] [place] [address] documented as of this encounter Visit Diagnoses Not on filedocumented in this encounter Care Teams Occupational Therapy Supervisor Relationship Specialty Start Date End Date Eleanor Torres MD [address] [place] [address] PCP - General Family Medicine 06/28/25 Cait Shaw, CORTNEY [address] [place] [address] Registered Nurse Family Medicine 07/23/25 Madison Humphrey 07/23/25 DON Hernandez Nurse Practitioner Psychiatry 06/28/25 documented as of this encounter
--- OUTSIDE RECORDS SUMMARY | 2025-07-24 17:08 | XMS_ITS | Encounter Summary ---
Author Organization [employer] Address [address] [facility] [address] [place] [address] Care Team Providers Care Geophysics Professor Name Role Phone Eleanor Torres MD Primary Care Provider [phone] Cait Shaw RN Unavailable [phone] Madison Humphrey Unavailable Reason for Visit * Reason Onset Date Comments Permission 07/03/2025 Encounter Details Date Type Department Care Team ([facility] st Contact Info) Description 07/03/2025 Telephone [facility] MED & PEDS [address] [place], [place] [id number] Eleanor Torres MD [address] [place], [place] [phone] Permission Social History Tobacco Use Types Packs/Day Years [...] encounter Miscellaneous Notes * Telephone Encounter - Robert Hernández - 07/03/2025 12:17 PM EDT FYI. Dutta from pt reporting that she has a letter that needs to be picked up at medical records. Due to having transportation issues, pt will not be able to fruit picker the paper. Pt is reporting that she is going to send her worker to come and grab the paper for her. The worker is a speech coach called [email or web address]. Phone number is [phone] documented in this encounter Plan of Treatment Upcoming Encounters Date Type Department Care Team (Late st Contact Info) Description 07/26/2025 3:30 PM EDT Office Visit [facility] MED & PEDS [address] [place] [address] Erica Rodriguez CNP [address] [place] [address] 09/10/2025 11:30 AM EST Office Visit [facility] MED & PEDS [address] [place] [address] Eleanor Torres MD [address] [place] [address] documented as of this encounter Visit Diagnoses Not on filedocumented in this encounter Care Teams Geophysics Professor Relationship Specialty Start Date End Date Eleanor Torres MD [address] [place] [address] PCP - General Family Medicine 06/28/25 Cait Shaw RN [address] [place] [address] Registered Nurse Family Medicine 07/23/25 Madison Humphrey 07/23/25 DON Hernandez Nurse Practitioner Psychiatry 06/28/25 documented as of this encounter
--- OUTSIDE RECORDS SUMMARY | 2025-07-24 17:08 | XMS_ITS | Encounter Summary ---
Author Organization [employer] Address [address] [place] [address] Care Team Providers Care Strategic Marketing Manager Name Role Phone Eleanor Torres MD Primary Care Provider [phone] Cait Shaw RN Unavailable [phone] Madison Humphrey Unavailable Encounter Details Date Type Department Care Team ([facility] st Contact Info) Description 07/23/2025 Patient Outreach [facility] MEDICINE [address] [place] [address] Eleanor Torres MD [address] [place], [place] [phone] Social History Tobacco Use Types Packs/Day Years Used Date Smoking Tobacco: Every Day Cigarettes Alcohol Use Standard Drinks/Week Comments Not Currently 0 (1 standard drink = 0.6 oz pur e alcohol) Housing Stability Answer Date Recorded What is your housing situation today? I have shruthi leonid 06/21/[address] you li [...] Description 07/26/2025 3:30 PM EDT Office Visit [facility] MED & PEDS [address] [place] [address] Erica Rodriguez CNP [address] [place] [address] 09/10/2025 11:30 AM EST Office Visit [facility] MED & PEDS [address] [place] [address] Eleanor Torres MD [address] [place] [address] documented as of this encounter Visit Diagnoses Not on filedocumented in this encounter Care Teams Strategic Marketing Manager Relationship Specialty Start Date End Date Eleanor Torres MD [address] [place] [address] PCP - General Family Medicine 06/28/25 Cait Shaw, RN [address] [place] [address] Registered Nurse Family Medicine 07/23/25 Madison Humphrey 07/23/25 DON Hernandez Nurse Practitioner Psychiatry 06/28/25 documented as of this encounter
--- OUTSIDE RECORDS SUMMARY | 2025-07-24 17:08 | XMS_ITS | Encounter Summary ---
Author Organization [employer] Address [address] [place] [address] Care Team Providers Care Mud Jack Nozzleman Name Role Phone Eleanor Torres MD Primary Care Provider [phone] Reason for Visit * Reason Onset Date Comments Nurse Triage 07/19/2025 Encounter Details Date Type Department Care Team ([facility] st Contact Info) Description 07/19/2025 Telephone [facility] MEDICINE [address] [place] [address] Eleanor Torres MD [address] [place] [address] Nurse Triage Social History Tobacco Use Types Packs/Day Years [...] t he electric, gas, oil or water [employer] threatened to shut off services in your [...] encounter Miscellaneous Notes * Telephone Encounter - Lorena Giraldo RN - 07/19/2025 1:48 PM EDT TC to pt and reviewed medication prescription and interactions, advised of location of pharmacy where script was sent. Pt verbalized understanding and agreement with plan. * Telephone Encounter - Eleanor Torres MD - 07/19/2025 12:02 PM EDT If patient needs a televisit, please schedule her for a televisit. I am sending cyclobenzapine, please advise patient of interaction with klonopin (respiratory depression). * Telephone Encounter - Nolvia Sahu RN - 07/19/2025 10:58 AM EDT Call returned to pt who c/o chronic low back pain at L4-L5 where her plate is. Pt reports that due to cold weather her pain is now rated at 8/10 when she gets out of bed, bends or twists and when sheclimbs stairs. Denies numbness, tingling, loss of bowel or bladder function. Pt states that pcp wanted to prescription her cyclobenzaprine at last office visit but pt declined. Pt asking if pcp will prescription cyclobenzaprine for her now. States she wants to ensure med will not react with lamotrigine, clonazepam or seroquel. Per [place] check today, pt last filled a 30 day supply of clonazepam on 07/06/25. Advised that request will be sent to pcp. Pt asking if pcp can call her today. Advised request will be sent to pcp for review. Advised pt of recommended protocol below. Pt is scheduled for pcp f/u 09/10/25. Protocol Used: Back Pain (Adult) Protocol-Based Disposition: See in Office or Video Visit within 2 Weeks Video visit not offered Positive Triage Question: * Back pain is a chronic symptom (recurrent or ongoing AND lasting > 4 weeks) * All higher-acuity triage questions were negative Care Advice Discussed: * Reasons To Call Back - Numbness or weakness occurs - Loss of control of your bladder or bowel - You become worse * Telephone Encounter - Miles Humphrey - 07/19/2025 10:36 AM EDT Symptom: Back Pain - Not From Injury Outcome: Schedule an appointment to be seen within 3 days Reason: Worsening Please contact pt at [phone]. documented in this encounter Plan of Treatment Upcoming Encounters Date Type Department Care Team (Late st Contact Info) Description 07/26/2025 3:30 PM EDT Office Visit [facility] MED & PEDS [address] [place] [address] Erica Rodriguez CNP [address] [place] [address] 09/10/2025 11:30 AM EST Office Visit [facility] MED & PEDS [address] [place] [address] Eleanor Torres MD [address] [place] [address] documented as of this encounter Visit Diagnoses Not on filedocumented in this encounter Care Teams Mud Jack Nozzleman Relationship Specialty Start Date End Date Eleanor Torres MD [address] [place] [address] PCP - General Family Medicine 06/28/25 DON Hernandez Nurse Practitioner Psychiatry 06/28/25 documented as of this encounter
--- OUTSIDE RECORDS SUMMARY | 2025-07-24 17:08 | XMS_ITS | Encounter Summary ---
Author Organization [employer] Address [address] [place] [address] Care Team Providers Care Bench Manager Name Role Phone Eleanor Torres MD Primary Care Provider [phone] Cait Shaw RN Unavailable [phone] Madison Humphrey Unavailable Encounter Details Date Type Department Care Team ([facility] st Contact Info) Description 07/24/2025 Patient Outreach [facility] MEDICINE [address] [place] [address] Eleanor Torres MD [address] [place], [place] [phone] Social History Tobacco Use Types Packs/Day Years Used Date Smoking Tobacco: Every Day Cigarettes Alcohol Use Standard Drinks/Week Comments Not Currently 0 (1 standard drink = 0.6 oz pur e alcohol) Housing Stability Answer Date Recorded What is your housing situation today? I have shrutih leonid 06/21/[address] you [...] Description 07/26/2025 3:30 PM EDT Office Visit [facility] MED & PEDS [address] [place] [address] Erica Rodriguez CNP [address] [place] [address] 09/10/2025 11:30 AM EST Office Visit [facility] MED & PEDS [address] [place] [address] Eleanor Torres MD [address] [place] [address] documented as of this encounter Visit Diagnoses Not on filedocumented in this encounter Care Teams Bench Manager Relationship Specialty Start Date End Date Eleanor Torres MD [address] [place] [address] PCP - General Family Medicine 06/28/25 Cait Shaw, RN [address] [place] [address] Registered Nurse Family Medicine 07/23/25 Madison Humphrey 07/23/25 DON Hernandez Nurse Practitioner Psychiatry 06/28/25 documented as of this encounter
--- OUTSIDE RECORDS SUMMARY | 2025-07-24 17:08 | XMS_ITS | Clinical Summary ---
Author Organization [employer] Address [address] [facility] 7t [place] [address] Care Team Providers Care Face Worker Name Role Phone Eleanor Torres MD Primary Care Provider [phone] Cait Shaw RN Unavailable Madison Humphrey Unavailable Allergies Active Allergy Reactions Criticality Noted Date Comments Ketorolac Unknown 07/22/2025 Patient stated I have allergic reaction to it before , Patient is unable to recall when and what was the reaction. Medications * This document contains information received from the source organization and may not represent a complete record from that organization. QUEtiapine (SEROquel) 50 MG tabletIndicati ons:Insomnia Take 75 mg by mouth at bedtime. 06/18/20 25 Active clonazePAM (KlonoPIN) 1 MG tablet TAKE ONE TABLET DAILY NEEDED FOR SEVERE anxiety/panic attacks Active lamoTRIgine (LaMICtal) 100 MG tablet Take 1 tablet by mouth Once per day. 06/27/20 25 Active Lidocaine 4 % patch Apply 1 patch topically Once per day. 07/22/20 25 025 Active acetaminophen (Tylenol) 325 MG tablet TAKE TWO TABLETS EVERY 6 HOURS NEEDED MILD PAIN FOR UP TO FIVE DAYS 07/23/20 25 Active tiZANidine (Zanaflex) 4 MG capsule Take 1 capsule (4 mg) by mouth 3 times daily. 90 capsule 11 07/24/20 25 026 Active oxyCODONE (Roxicodone) 5 MG immediate release tabletIndicati ons:Severe back pain Take 1 tablet (5 mg) by mouth every 6 (six) hours if needed for severe pain. 5 tablet 07/24/20 Active omeprazole (PriLOSEC) [address] capsule TAKE ONE CAPSULE BY MOUTH TWICE DAILY FOR 14 DAYS DO NOT BREAK, CRUSH, DISSOLVE OR CHEW 05/01/20 025 Discontinued( erapy completed) lamoTRIgine (LaMICtal) 25 MG tablet Take 100 mg by mouth Once per day. 06/04/20 025 Discontinued acetaminophen (Tylenol Extra Strength) 500 MG tablet Take 2 tablets (1,000 mg) by mouth every 8 (eight) hours if needed for mild pain. 90 tablet 06/28/20 Discontinued cyclobenzaprin e (Flexeril) 10 MG tablet Take 1 tablet (10 mg) by mouth 3 times daily for 10 days. 30 tablet 07/19/20 Discontinued( erapy completed) methocarbamol (Robaxin) 500 MG tablet Take 1,000 mg by mouth 3 times daily. 07/22/20 Discontinued( erapy completed) Active Problems Problem Noted Date Diagnosed Date Severe back pain 07/24/2025 Assessment & Plan (07/24/2025 11:54 AM EDT): Was provided with medication for pain, reviewed ED note, scheduled appointment with provider for evaluation Cervical cancer screening 07/24/2025 Assessment & Plan (07/24/2025 11:56 AM EDT): 49 y.o. here for cervical cancer screening. Will continue monitoring following ASCCP guidelines. 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 Asthma 02/25/2012 Encounters Date Type Department Care Team Description 07/24/2025 11:00 AM EDT Procedure Visit [facility] [address] [place] [address] Eleanor Torres MD Severe back pain (Primary Dx); Cervical cancer screening 07/24/2025 Patient Outreach [facility] [address] [place] [phone] Eleanor Torres MD 07/24/2025 Travel 07/23/2025 Patient Outreach [address] [address] Eleanor Torres MD Care Coordination (CM/CHW outreach) 07/23/2025 Patient Outreach [address] [phone] Eleanor Torres MD Care Coordination (CHW chart review) 07/23/2025 Patient Outreach [address] [phone] Eleanor Torres MD Care Management (C3CM- chart review) 07/23/2025 Patient Outreach [address] [phone] Eleanor Torres MD 07/19/[address] [phone] Eleanor Torres MD Nurse Triage 07/03/2025 Telephone [facility] [address] [place], [place] [phone] Eleanor Torres MD Permission 07/02/2025 Telephone [facility] [address] [place] [address] Eleanor Torres MD 06/29/2025 Results Follow-Up [facility] [address] [place] [address] Eleanor Torres MD CBC auto differential, Comprehensive Metabolic Panel, Lipid Panel, Standard, TSH W/Reflex to FT4 06/28/2025 10:45 AM EDT Office Visit [facility] [address] [place] [address] Eleanor Torres MD Blurry vision (Primary Dx); Breast cancer screening by mammogram; H. pylori infection; Encounter for health-related screening; Overweight; Abnormal uterine bleeding; Acute right-sided thoracic back pain 06/28/2025 Travel 06/25/2025 Telephone [facility] [address] [place] [address] Eleanor Torres MD chart prep 06/22/2025 Patient Outreach [address] [phone] Fabiola Zamarripa Care Coordination (C3 CM-CHW Fabiola Zamarripa telephone call outreach/) 06/21/2025 Patient Outreach [facility] [address] [place] [address] Guy Medina MD Pre-visit Planning (SDOH screening positive and Tobacco screening positive) 04/23/2025 Telephone [facility] [address] [place] [address] Guy Medina MD New Patient from Last [...] the past 12 months, has t he [employer], gas, oil or water company threatened to [...] Mass Index 28.31 07/24/2025 11:24 AM EDT Plan of Treatment Upcoming Encounters Date Type Department Care Team (Late st Contact Info) Description 07/26/2025 3:30 PM EDT Office Visit [facility] [address] [place] [address] Erica Rodriguez CNP [address] [place] [address] 09/10/2025 11:30 AM EST Office Visit [facility] [address] [place] [address] Eleanor Torres MD [address] [place] [address] Health Maintenance Due Date Last Done Comments CT Colonography 1975 Depression Screening 1975 FIT DNA/Cologuard 1975 FIT 1975 FOBT 1975 Sigmoidoscopy 1975 Disability Screening 1975 Alcohol/Substance Use Screening 1987 Family Planning (PISQ) 1990 DTaP/Tdap/Td Vaccines (1 - Tdap) 1994 Hepatitis [...] 2025 SDOH Screening 06/21/2026 06/21/2025 Tobacco Screening 07/24/2026 07/24/2025 Lipid Panel 06/28/2030 06/28/2025 Colonoscopy 12/20/2034 12/20/2024 Colorectal Cancer Screening 12/20/2034 RSV Patients and Patients Aged 60 years or older (1 - 1-dose 75+ series) 2050 HIV Screening Completed 06/28/2025 Hepatitis C Screening Completed 06/28/2025 HIB Vaccines Aged Out No longer eligi [...] Procedure Name Priority Date/Time Associated Diagnosis Comments HEPATITIS B SURFACE ANTIGEN, EIA Routine 06/28/2025 11:53 AM EDT Encounter for health-related screening HEPATITIS B CORE AB TOTAL Routine 06/28/2025 11:53 AM EDT Encounter for health-related screening HEPATITIS B SURFACE ANTIBODY, QUALITATIVE Routine 06/28/2025 11:53 AM EDT Encounter for health-related screening HEPATITIS C AB W/REFL TO HCV RNA, QN, PCR Routine 06/28/2025 11:53 AM EDT Encounter for health-related screening HIV 1/2 ANTIGEN/ANTIBODY, FOURTH GENERATION W/RFL Routine 06/28/2025 11:53 AM EDT Encounter for health-related screening TSH W/REFLEX TO FT4 Routine 06/28/2025 1 1:53 AM EDT Encounter for health-related screening Overweight LIPID PANEL, STANDARD Routine 06/28/2025 11:53 AM EDT Encounter for health-related screening Overweight COMPREHENSIVE METABOLIC PANEL Routine 06/28/2025 11:53 AM EDT Encounter for health-related screening Overweight CBC WITH AUTO DIFFERENTIAL Routine 06/28/2025 11:53 AM EDT Encounter for health-related screening Overweight BI MAMMOGRAM DIAGNOSTIC BILATERAL Routine 11/30/2019 5:29 PM EST from Last 3 Months or Most Recently Relevant to Health Maintenance Results * TSH W/Reflex to FT4 (06/28/2025 11:53 AM EDT) TSH reflex Free T4 1.45 0.32 - 4.0 uIU/mL [facility] Blood Venous blood specimen / Unknown 06/28/2025 11:53 AM EDT 06/28/2025 2:32 PM EDT us Eleanor Torres MD LAB BLOOD ORDERABLES Final Re sult [facility] [address] [place] [address] [phone] * CBC auto differential (06/28/2025 11:53 AM EDT) White Blood Count 9.1 4.8 - 10.8 X10*3/uL [facility] Red Blood Count 4.56 4.20 - 5.50 X10*6/uL [facility] Hemoglobin 13.5 12.0 - 16.0 g/dl [facility] Hematocrit 40.5 37.0 - 47.0 % [facility] Mean Corpuscular Volume 88.8 80.0 - 98.0 fL [facility] Mean Corpuscular Hemoglobin 29.6 27.0 - 33.0 pg [facility] Mean Corpuscular HGB Conc 33.3 31.0 - 35.0 g/dl [facility] Red Cell Distribution Width 15.6 11.0 - 16.0 % [facility] Platelet Count 307 160 - 400 X10*3/uL [facility] Mean Platelet Volume 11.0 9.4 - 12.3 fL [facility] Neutrophils Percent Auto 54.1 45 - 73 % [facility] Imm Gran Pct Auto 0.3 0.0 - 0.4 % [facility] Lymphocytes Percent Auto 38.2 20 - 40 % [facility] Monocytes Percent Auto 5.0 2 - 11 % [facility] Eosinophils Percent Auto 2.2 0 - 4 % [facility] Basophils Percent Auto 0.2 0 - 2 % [facility] NRBC Pct Auto 0.0 0.0 - 0.2 /100WBC [facility] Neutrophils Absolute Auto 4.9 2.0 - 8.3 x10*3/uL [facility] Imm Gran Abs Auto 0.03 0.00 - 0.03 X10*3/uL [facility] Lymphocytes Absolute Auto 3.5 1.2 - 4.9 X10*3/uL [facility] Monocytes Absolute Auto 0.5 0.1 - 1.2 X10*3/uL [facility] Eosinophils Absolute Auto 0.2 0.0 - 0.4 X10*3/uL [facility] Basophils Absolute Auto 0.0 0.0 - 0.2 X10*3/uL [facility] NRBC Abs Auto 0.000 0.0 - 0.012 X10*3/uL [facility] Blood Venous blood specimen / Unknown 06/28/2025 11:53 AM EDT 06/28/2025 2:32 PM EDT us Eleanor Torres MD LAB BLOOD ORDERABLES Final Re sult Performing Organization Address [facility] Co de Phone Number [facility] [address] [place] [phone] * Hepatitis C Antibody with Reflex to HCV, RNA, Quantitative, Real-Time PCR (06/28/2025 11:53 AM EDT) Hepatitis C Antibody Nonreactive Nonreactive [facility] Comment:Antibodies to HCV no t detected; does not exclude early acuteHCV infection. Blood Venous blood specimen / Unknown 06/28/2025 11:53 AM EDT 06/28/2025 2:32 PM EDT Eleanor Torres MD LAB BLOOD ORDERABLES Final Re sult Performing Organization Address [facility] Co de Phone Number [facility] [address] [place] [phone] * Hepatitis B surface antigen, EIA (06/28/2025 11:53 AM EDT) Hepatitis B Surface Ag Negative Negative [facility] Blood Venous blood specimen / Unknown 06/28/2025 11:53 AM EDT 06/28/2025 2:32 PM EDT Eleanor Torres MD LAB BLOOD ORDERABLES Final Re sult Performing Organization Address [facility] Co de Phone Number [facility] [address] [place] [phone] * Hepatitis B Core Antibody, Total (06/28/2025 11:53 AM EDT) Hepatitis B Core Antibody Nonreactive Nonreactive [facility] Blood Venous blood specimen / Unknown 06/28/2025 11:53 AM EDT 06/28/2025 2:32 PM EDT Eleanor Torres MD LAB BLOOD ORDERABLES Final Re sult Performing Organization Address [facility]/ZIP Co de Phone Number [facility] [address] [place] [phone] [phone] * HIV-1/2 Antigen and Antibodies, Fourth Generation, with Reflexes (06/28/2025 11:53 AM EDT) HIV AB/AG Nonreactive Nonreactive [facility] Comment:HIV-1 p24 Ag and/or HIV-1/HIV-2 Ab not detected.A test result that is nonreactive does not exclude thepossibility of exposure to or infection with HIV-1 and/orHIV-2. Nonreactive results in this assay for individualswith prior exposure to HIV-1 and/or HIV-2 may be due toantigen and antibody levels that are below the limit ofdetection of this assay.The [employer] Snap HIV Ag/Ab Combo assay result andsupplemental assay results should be interpreted inconjunction with the patient's clinical presentation,history and other laboratory results. If the results areinconsistent with clinical evidence, additional testing issuggested to confirm the result. Blood Venous blood specimen / Unknown 06/28/2025 11:53 AM EDT 06/28/2025 2:32 PM EDT us Eleanor Torres MD LAB BLOOD ORDERABLES Final Re sult Performing Organization Address [facility] Co de Phone Number [facility] [address] [place] [address] [phone] * Hepatitis B Surface Antibody, Qualitative (06/28/2025 11:53 AM EDT) ~Hepatitis B Surface Antibody NONREACTIVE Nonreactive [facility] Comment:Nonreactive: < 8.00 mIU/mL Blood Venous blood specimen / Unknown 06/28/2025 11:53 AM EDT 06/28/2025 2:32 PM EDT Eleanor Torres MD LAB BLOOD ORDERABLES Final Re sult [facility] [address] [place] [phone] [phone] * (ABNORMAL) Lipid Panel, Standard (06/28/2025 11:53 AM EDT) Triglycerides 127 <150 mg/dL [facility] Comment:Slight Lipemia.Teresa able Triglyceride: less than 150 mg/dLBorderline High Triglyceride 150-199 mg/dLHigh Triglyceride: 200-499 mg/dLVery High Triglyceride: greater than or equal to 5OO mg/dL Cholesterol 213(H) <200 mg/dL [facility] Comment:Desirable Cholestero l: less than 200 mg/dLBorderline High Cholesterol: 200-239 mg/dLHigh Cholesterol: greater than 239 mg/dL LDL Cholesterol Calculated 145(H) <100 mg/dL [facility] Comment:Desirable LDL: less than 100 mg/dLNear Optimal/Above Optimal LDL: 110- 129 mg/dLBorderline High LDL: 130-159 mg/dLHigh LDL: 160-189 mg/dLVery High LDL: greater than or equal to 190 mg/dL HDL Cholesterol 43 >40 mg/dL [facility] Comment:Desirable HDL: great er than 40 mg/dL Note: This HDL assay may give artificially low results in patients with liver disease. Blood Venous blood specimen / Unknown 06/28/2025 11:53 AM EDT 06/28/2025 2:32 PM EDT us Eleanor Torres MD LAB BLOOD ORDERABLES Final Re sult [facility] [address] [place] [address] [phone] * (ABNORMAL) Comprehensive Metabolic Panel (06/28/2025 11:53 AM EDT) Sodium 141 135 - 145 mmol/L [facility] Potassium 4.2 3.3 - 5.1 mmol/L [facility] Chloride 108 96 - 108 mmol/L [facility] Carbon Dioxide 27 22 - 29 mmol/L [facility] Anion Gap 10(L) 12 - 20 [facility] Urea Nitrogen (BUN) 10 9 - 16 mg/dL [facility] Creatinine, Serum 0.83 0.5 - 1.4 mg/dL [facility] Estimated Glomerular Filt Rate >60 [facility] Comment:Chronic Kidney Disea se: Estimated GFR < 60 mL/min/1.94y6Sbdgga Kidney Disease: Estimated GFR < 15 mL/min/1.73m2 Glucose 83 60 - 115 mg/dL [facility] Calcium 9.3 8.4 - 10.2 mg/dL [facility] Bilirubin, Total 0.2 0.0 - 1.0 mg/dL [facility] Aspartate Amino Transferase 34(H) 5 - 31 U/L [facility] Alanine Aminotransferase 13 0 - 31 U/L [facility] Total Protein 7.7 6.5 - 8.0 g/dL [facility] Albumin Level 4.5 3.5 - 5.0 g/dL [facility] Alkaline Phosphatase 87 39 - 117 U/L [facility] Blood Venous blood specimen / Unknown 06/28/2025 11:53 AM EDT 06/28/2025 2:32 PM EDT us Eleanor Torres MD LAB BLOOD ORDERABLES Final Re sult [facility] [address] [place] [phone] * 3D BILATERAL DIAGN MAMMO 1 (11/30/2019 5:29 PM EST) Anatomical Region Laterality Modality Breast Bilateral Mammography 11/30/2019 5:29 PM EST Narrative 12/01/2019 8:57 AM EST Refer to the Notes tab for result details [facility] Procedure: 3D BILATERAL DIAGN MAMMO 1 Procedure Note ProviderLuz MD - 01/02/2023 Refer to the Notes tab for result details [facility] Procedure: 3D BILATERAL DIAGN MAMMO 1 us Maxwell Phelps MD IMG BI PROCEDURES Final Result from Last 3 Months or Most Recently Relevant to Health Maintenance Insurance [facility] C3 Care Teams Face Worker Relationship Specialty Start Date End Date Eleanor Torres MD [address] [place] [address] PCP - General Family Medicine 06/28/25 Cait Shaw, CORTNEY [address] [place], [place] Registered Nurse Family Medicine 07/23/25 Madison Humphrey 07/23/25 DON Hernandez Nurse Practitioner Psychiatry 06/28/25
--- OUTSIDE RECORDS SUMMARY | 2025-07-24 17:08 | XMS_ITS | Encounter Summary ---
Author Organization [employer] Address [address] [facility] [address] [place] [address] Care Team Providers Care Regional Owner Operator Truck Driver Name Role Phone Eleanor Torres MD Primary Care Provider [phone] Cait Shaw RN Unavailable [phone] Madison Humphrey Unavailable Reason for Visit * Reason Comments Care Coordination CHW chart review Encounter Details Date Type Department Care Team (Latest Contact Info) Description 07/23/2025 Patient Outreach [facility] [address] [place] [address] Eleanor Torres MD [address] [place] [address] Care Coordination (CHW chart review) Social History Tobacco Use Types Packs/Day Years [...] Progress Notes * Madison Humphrey - 07/23/2025 9:16 AM EDT CM/C3 CHW Madison Humphrey Chart Review CHW Madison Humphrey reviewed chart review completed by THUY Shaw RN THUY Shaw RN, performed chart review, in anticipation of initial assessment with patient, as patient has stratified for C3 Adult Complex Care through the ADT feed. History significant for asthma, chronic obstructive lung disease, lymphocytic esophagitis, smoker, perimenopause, H, Pylori infection, bipolar depression, anxiety, panic attacks, insomnia, and persistent back pain. Specialists include Optometry, Behavioral Health, PT. ED visits within the last 12 months include [facility] ED 07/22/25 diagnosis lumbar strain- referred to Neurosurgery, [facility] 01/10/25-01/13/25, [facility] 05/26/25-05/30/25. Last appointment in PCP office on 06/28/25. Next appointment scheduled for 07/24/25 at 11:00am for PAP and f/u with PCP on 09/10/25 at 11:30am. documented in this encounter Plan of Treatment Upcoming Encounters Date Type Department Care Team ([facility] st Contact Info) Description 07/26/2025 3:30 PM EDT Office Visit [facility] MED & PEDS [address] [place] [address] Erica Rodriguez, GRADE AND CENTER MARKER [address] [place] [address] 09/10/2025 11:30 AM EST Office Visit [facility]EDS [address] [place] [address] Eleanor Torres MD [address] [place] [address] documented as of this encounter Visit Diagnoses Not on filedocumented in this encounter Care Teams Regional Owner Operator Truck Driver Relationship Specialty Start Date End Date Eleanor Torres MD [address] [place] [address] PCP - General Family Medicine 06/28/25 Cait Shaw RN [address] [place] [address] Registered Nurse Family Medicine 07/23/25 Madison Humphrey 07/23/25 DON Hernandez Nurse Practitioner Psychiatry 06/28/25 documented as of this encounter
--- OUTSIDE RECORDS SUMMARY | 2025-07-24 17:08 | XMS_ITS | Encounter Summary ---
Author Organization [employer] Address [address] [facility] [address]t [place] [address] Care Team Providers Care Principal Architectural Firm Name Role Phone Eleanor Torres MD Primary Care Provider [phone] Cait Shaw RN Unavailable [phone] Madison Humphrey Unavailable Reason for Visit * Reason Onset Date Comments Appointment Request 03/22/2024 Encounter Details Date Type Department Care Team (Late st Contact Info) Description 03/22/2024 Telephone [facility] MED[facility]INE [address] [place] [address] Billie Cutler MD [address] [place], [place] [phone] Appointment Request Social History Tobacco Use Types [...] 3:19 PM EDT Tc regarding message prior. Art Objects Supervisor informed is no longer a pt. Hasn't [...] Description 07/26/2025 3:30 PM EDT Office Visit [facility] MED & PEDS [address] [place] [address] Erica Rodriguez CNP [address] [place] [address] 09/10/2025 11:30 AM EST Office Visit [facility] MED & PEDS [address] [place], [place] [phone] Eleanor Torres MD [address] [place] [address] documented as of this encounter Visit Diagnoses Not on filedocumented in this encounter Care Teams Principal Architectural Firm Relationship Specialty Start Date End Date Eleanor Torres MD [address] [place] [address] PCP - General Family Medicine 06/28/25 Cait Shaw, RN [address] [place] [address] Registered Nurse Family Medicine 07/23/25 Madison Humphrey 07/23/25 DON Hernandez Nurse Practitioner Psychiatry 06/28/25 documented as of this encounter
--- OUTSIDE RECORDS SUMMARY | 2025-07-24 17:08 | XMS_ITS ---
Author Organization [employer] Address [address] [facility] [address] [place] [address] Care Team Providers Care Swift Tender Name Role Phone Eleanor Torres MD Primary Care Provider [phone] Cait Shaw RN Unavailable [phone] Madison Humphrey Unavailable CM Complex Status:Outreach In Progress (Enrolling) Start date:07/23/2025 Overview ED- Pt went to [facility] ED on 07/22/25. Case Team Name Relationship Phone Cait Shaw RN(Responsible Staff) Registered Nurse [phone] Continued Care and Services Coordination
--- OUTSIDE RECORDS SUMMARY | 2025-07-24 17:08 | XMS_ITS ---
Author Organization [employer] Address [address] [facility] [address] [place] [address] Care Team Providers Care Shear Operator Name Role Phone Eleanor Torres MD Primary Care Provider [phone] Cait Shaw RN Unavailable [phone] Madison Humphrey Unavailable CHW Complex Status:Outreach In Progress (Enrolling) Start date:07/23/2025 Enrollment reason:ADT Feed Overview ED- Pt went to [facility] ED on 07/22/25. Please outreach for enrollment. Case Team Name Relationship Phone Madison Humphrey(Responsible Staff) [phone] Continued Care and Services Coordination
--- OUTSIDE RECORDS SUMMARY | 2025-07-24 17:08 | XMS_ITS | Encounter Summary ---
Author Organization [employer] Address [address] [place] [address] Care Team Providers Care Skin Care Therapist Name Role Phone Eleanor Torres MD Primary Care Provider [phone] Cait Shaw RN Unavailable [phone] Madison Humphrey Unavailable Reason for Visit * Reason Comments Care Management C3- chart review Encounter Details Date Type Department Care Team ([facility] st Contact Info) Description 07/23/2025 Patient Outreach [facility] [address] [place] [address] Eleanor Torres MD [address] [place] [address] Care Management (C3CM- chart review) Social History Tobacco Use Types [...] as of this encounter Progress Notes * Cait Shaw RN - 07/23/2025 8:44 AM EDT THUY Shaw RN, performed chart review, in [...] visits within the last 12 months include [facility] ED 07/22/25 diagnosis lumbar strain- referred to Neurosurgery, [facility] 01/10/25-01/13/25, [facility] 05/26/25-05/30/25. Last appointment in PCP office on 06/28/25. Next appointment scheduled for 07/24/25 at 11:00am for PAP and f/u with PCP on 09/10/25 at 11:30am. documented in this encounter Plan of Treatment Upcoming Encounters Date Type Department Care Team ([facility] st Contact Info) Description 07/26/2025 3:30 PM EDT Office Visit [facility] [address] [place] [address] Erica Rodriguez, MOTEL CLERK [address] [place] [address] 09/10/2025 11:30 AM EST Office Visit [facility] [address] [place] [address] Eleanor Torres MD [address] [place] [address] documented as of this encounter Visit Diagnoses Not on filedocumented in this encounter Care Teams Skin Care Therapist Relationship Specialty Start Date End Date Eleanor Torres MD [address] [place] [address] PCP - General Family Medicine 06/28/25 Cait Shaw RN [address] [place] [address] Registered Nurse Family Medicine 07/23/25 Madison Humphrey 07/23/25 DON Hernandez Nurse Practitioner Psychiatry 06/28/25 documented as of this encounter
[2025-07-26 21:37] LABS: C. trachomatis RNA TMA NOT DETECTED (NOT DETECTED); N. gonorrhoeae RNA TMA NOT DETECTED (NOT DETECTED); Trichomonas (NAAT) NOT DETECTED (NOT DETECTED)
== END 2025-07-24 12:01 | disposition home or self-care (01) ==
LOC: HO.HHCLNP 12:00
PROVIDERS: Visit Provider Family Medicine
DX: Z12.4 Encounter for screening for malignant neoplasm of cervix (principal); Z11.3 Encounter for screening for infections with a predominantly sexual mode of transmission; Z11.8 Encounter for screening for other infectious and parasitic diseases
CPT/HCPCS: 87491; 87591; 87626; 87661; 88175